=== PATIENT | male | born 2000 ===

== ENCOUNTER 2024-07-12 16:02 | Outpatient (REF) | payer OTHER, SELFPAY ==
[2024-07-13 02:43] LABS: CT PCR NOT DETECTED (Not Detect.); NG PCR NOT DETECTED (Not Detect.)
[2024-07-13 09:45] LABS: ~HepC Num1 0.06 S/CO (0.00-0.79); ~Hepatitis C Antibody Nonreactive (Nonreactive)
[2024-07-14 08:16] LABS: HIV AB/AG Nonreactive (Nonreactive); HIV Num 1 0.08 S/CO (0.00-0.99)
== END 2024-07-12 16:03 | disposition home or self-care (01) ==
LOC: HO.HHCL 16:02
PROVIDERS: Visit Provider Family Medicine
DX: Z11.4 Encounter for screening for human immunodeficiency virus [HIV] (principal); A64 Unspecified sexually transmitted disease
CPT/HCPCS: 36415; 86803; 87389; 87491; 87591

== ENCOUNTER 2024-10-17 16:17 | Outpatient (REF) | payer MEDICAID, SELFPAY ==
[2024-10-17 17:47] LABS: MANUAL DIFF FLAG NO
[2024-10-17 17:58] LABS: Basophils Percent Auto 0.4 % (0-2); Eosinophils Percent Auto 0.1 % (0-4); Hematocrit 40.5 % (42.0-52.0); Hemoglobin 14.4 g/dl (14.0-18.0); Imm Gran Abs Auto 0.05 X10*3/uL (0.00-0.03); Imm Gran Pct Auto 0.6 % (0.0-0.4); Lymphocytes Absolute Auto 1.2 X10*3/uL (1.2-4.9); Lymphocytes Percent Auto 14.2 % (20-40); Mean Corpuscular HGB Conc 35.6 g/dl (31.0-36.0); Mean Corpuscular Hemoglobin 30.4 pg (27.0-33.0); Mean Corpuscular Volume 85.4 fL (80.0-98.0); Mean Platelet Volume 8.6 fL (9.4-12.4); Monocytes Absolute Auto 0.8 X10*3/uL (0.1-1.2); Monocytes Percent Auto 9.9 % (2-11); Neutrophils Absolute Auto 6.4 x10*3/uL (2.0-8.3); Neutrophils Percent Auto 74.8 % (45-73); Platelet Count 205 X10*3/uL (160-400); Red Blood Count 4.74 X10*6/uL (4.60-5.80); Red Cell Distribution Width 12.2 % (11.0-16.0); White Blood Count 8.5 X10*3/uL (4.8-10.8)
[2024-10-17 18:16] LABS: Alanine Aminotransferase 20 U/L (0-40); Albumin Level 4.6 g/dL (3.5-5.0); Alkaline Phosphatase 46 U/L (39-117); Anion Gap 11 (12-20); Aspartate Amino Transferase 21 U/L (5-37); Bilirubin Total 0.8 mg/dL (0.0-1.0); Blood Urea Nitrogen 12 mg/dL (9-16); Calcium 8.9 mg/dL (8.4-10.2); Carbon Dioxide 28 mmol/L (22-29); Chloride 100 mmol/L (96-108); Estimated Glomerular Filt Rate > 60; Glucose Random 102 mg/dL (60-115); Potassium 3.3 mmol/L (3.3-5.1); Sodium 136 mmol/L (135-145); Total Protein 7.9 g/dL (6.5-8.0)
== END 2024-10-17 16:18 | disposition home or self-care (01) ==
LOC: HO.HHCL 16:17
PROVIDERS: Visit Provider Family Medicine
DX: R42 Dizziness and giddiness (principal)
CPT/HCPCS: 36415; 80053; 85025

== ENCOUNTER → 2024-11-04 11:11 | Outpatient (REF) | payer MEDICAID, SELFPAY ==
--- OUTSIDE RECORDS SUMMARY | 2024-11-04 12:21 | XMS_ITS | Encounter Summary ---
Author Organization [employer] Address [address] [facility] 7t [place] [address] Care Team Providers Care Associate Professor Of Automation Name Role Phone Marcella Antony MD Primary Care Provider [phone]- [phone] Isra Rapp DPM Unavailable [phone] Reason for Visit * Reason Onset Date Comments Nurse Triage 10/17/2024 Encounter Details Date Type Department Care Team ([facility] st Contact Info) Description 10/17/2024 Telephone [facility] MEDICINE [address] [place], [place] [phone] Marcella Antony MD [address] [place], [place] [phone] Nurse Triage Social History Tobacco Use Types Packs/Day Years Used Date Smoking Tobacco: Never Smokeless Tobacco: Never Alcohol Use Standard Drinks/Week Comments Never 0 (1 standard drink = 0.6 oz pur e alcohol) Housing Stability Answer Date Recorded What is your housing situation today? I have piotrsophy olivera 09/02/[address] you li ve. Do you have problems with any of the following? None of the above 09/02/2024 Food Insecurity Answer Date Recorded Within the past 12 months, y ou worried that your food would run out before you got money to buy more: Never True 09/02/2024 Within the past 12 months,th e food you bought just didn't last and you didn't have enough money to get more: Never True Transportation Answer Date Recorded In the past 12 months, has l ack of transportation kept you from medical appts, meetings, work or from getting things needed for daily living? No 09/02/2024 Utilities Answer Date Recorded In the past 12 months, has t he electric, gas, oil or water company threatened to shut off services in your home? 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 Pt reports hadbeen dizzy prior to getting to the bathroom and when stood up after toileting Pt saw blurred visionthen black and fell backward toward bathtub. Pt reports mother heard the fall and helped Pt up . Ptreports this episode didn't last more than a minute. Pt denies injury but, isn't sure if hit head. Pt denies bumps or bruises. Pt is called at work and is alert and without headache. Pt is advised [facility] to [facility] today to be seen by provider. Pt reports gets out of work at 630pm and will come to [facility]. Home care is reviewed. Pt agrees with disposition . Insurance is verified as active prior to booking. Protocol Used: Fainting (Adult) Protocol-Based Disposition: See in Office or Video Visit Today Positive Triage Questions: * All other patients, and now alert and feels fine (Exception: SIMPLE FAINT due to stress, pain, prolonged standing, or suddenly standing.) * Patient wants to be seen * All higher-acuity triage questions were negative Care Advice Discussed: * Treatment - Fainting * Expected Course - Fainting * Prevention - Fainting * Warning Symptoms for Fainting * Reasons To Call Back - You pass out again on the same day - You are * Telephone Encounter - Jose Ramon Malin - 10/17/2024 9:08 AM EST Symptom: Fainted (Passed Out) Outcome: Schedule an urgent appointment (within 1 hour) or talk to a nurse or provider soon Reason: Caller denied all higher acuity questions The caller accepted this outcome. Contact pt at [phone] documented in this encounter Plan of Treatment Upcoming Encounters Date Type Department Care Team (Late st Contact Info) Description 12/19/2024 9:00 AM EDT Office Visit [facility] MEDICINE [address] [place] [phone] Marcella Antony MD [address] [place] [phone] documented as of this encounter Visit Diagnoses Not on filedocumented in this encounter Care Teams Associate Professor Of Automation Relationship Specialty Start Date End Date Marcella Antony MD [address] [place] [address] PCP - General Family Medicine 07/12/24 Isra Rapp DPM [address] [place] [phone] Podiatry 10/19/24 documented as of this encounter
--- OUTSIDE RECORDS SUMMARY | 2024-11-04 12:21 | XMS_ITS | Encounter Summary ---
Author Organization [employer] [facility] Address [address] [facility] [address] 7t [place] [address] Care Team Providers Care Health Care Marketing Specialist Name Role Phone Marcella Antony MD Primary Care Provider [phone] Encounter Details Date Type Department Care Team (Latest Contact Info) Description 10/17/2024 Travel Social History Tobacco Use Types Packs/Day Years Used Date Smoking Tobacco: Never Smokeless Tobacco: Never Alcohol Use Standard Drinks/Week Comments Never 0 (1 standard drink = 0.6 oz pur e alcohol) Housing Stability Answer Date Recorded What is your housing situation today? 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 Not on file documented as of this encounter Plan of Treatment Upcoming Encounters Date Type Department Care Team (Late st Contact Info) Description 12/19/2024 9:00 AM EDT Office Visit [facility] MEDICINE [address] [place] [address] Marcella Antony MD [address] [place] [phone] documented as of this encounter Visit Diagnoses Not on filedocumented in this encounter Care Teams Health Care Marketing Specialist Relationship Specialty Start Date End Date Marcella Antony MD [address] [place] [phone] PCP - General Family Medicine 07/12/24 documented as of this encounter
--- OUTSIDE RECORDS SUMMARY | 2024-11-04 12:21 | XMS_ITS | Encounter Summary ---
Author Organization [employer] [facility] Address [address] [place] [address] 7t [place] [address] Care Team Providers Care Seasonal Warehouse Associate Name Role Phone SaxisMarcella MD Primary Care Provider [phone] Reason for Referral * Cardiology (Routine) - Authorized Specialty Diagnoses / Procedures Referred By Gary chin Referred To Contact Cardiology Diagnoses Syncope, unspecified syncope type Procedures Cardiac event monitor Rose Braxton MD [address] [place] [address] Phone: tel: fax: [address] Phone: tel: fax: Referral ID Status Reason Start Date Expiration Date V isits Requested Visits Authorized [id number] Authorized 10/23/2024 10/23/2025 1 1 Encounter Details Date Type Department Care Team (Latest Contact Info) Description 10/17/2024 3:45 PM EST Office Visit [facility] MEDICINE [address] [place], [place] [phone] Rose Braxton MD [address] [place], [place] [phone] Nonintractable headache, unspecified chronicity pattern, unspecified headache type (Primary Dx); Dizziness; Nausea; Blood in stool; Syncope, unspecified syncope type Social History Tobacco Use Types Packs/Day Years Used Date Smoking Tobacco: Never Smokeless Tobacco: Never Alcohol Use Standard Drinks/Week Comments Never 0 (1 standard drink = 0.6 oz pur e alcohol) Housing Stability Answer Date Recorded What is your housing situation today? 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 male who presents for headache. Triage Note: Patient reports fainting at 5 am on 10/16/24 while getting up to go to the bathroom. [place] dizzy before going to th bathroom. Blurry vision. His mother came to help him. Today: The pt reports fainting. He said it has happened before, but this one came on so quick that he couldn't stay in control and he fainted and hit his head. He currently has a pulsating headache from where he hit his head when he fainted. He said he noticed some blood after. He experiences a little nausea but denies dizziness right now. He says when he looks at light outside it bothers his eyes a little, but his vision is normal. When he was laying down after fainting, he reports hearing tinnitus. The last time something like this has happened to him was around a week or so ago. He said he fainted at the new job he started working, but contributes it to gastroenteritis. He kept throwing up, he had diarrhea, and dizziness. He went to the [facility] ED. He states no seizure-like episode or postictal symptoms. When he wiped recently, he reports seeing blood in his stool. He denies taking any medication. Reviewing [facility] record, CT abd/plevis on 10/08/24 showed no abnormality. EKG was reported as sinus tachycardia, right atrial enlargement and right axis deviation. Review of Systems Constitutional: Negative for activity change, appetite change, fever and unexpected weight change. Respiratory: Negative for shortness of breath. Cardiovascular: Negative for chest pain. Gastrointestinal: Positive for nausea. Neurological: Positive for light-headedness and headaches. Objective Vitals: 10/17/24 1555 BP: 128/73 Pulse: 103 Resp: 21 Temp: 97.5 ??F (36.4 ??C) TempSrc: Temporal SpO2: 98% Weight: 141 lb 3.2 oz (64 kg) Physical Exam Constitutional: General: He is not in acute distress. Appearance: Normal appearance. He is not ill-appearing. HENT: Head: Normocephalic and atraumatic. Mouth/Throat: Mouth: Mucous membranes are moist. Eyes: Extraocular Movements: Extraocular movements intact. Pupils: Pupils are equal, round, and reactive to light. Cardiovascular: Rate and Rhythm: Normal rate and regular rhythm. Heart sounds: No murmur heard. Pulmonary: Effort: Pulmonary effort is normal. No respiratory distress. Breath sounds: Normal breath sounds. No wheezing or rhonchi. Skin: General: Skin is warm. Neurological: Mental Status: He is alert. Mental status is at baseline. Psychiatric: Mood and Affect: Mood normal. Assessment/Plan Problem List Items Addressed This Visit Nonintractable headache - Primary -Since the head injury, if you feel dizziness, I advise you to take ibuprofen or acetaminophen -We will evaluate him with MRI if pain does not improve in next few weeks -I advise you to contact us if symptoms worsen Relevant Medications ibuprofen 600 MG tablet acetaminophen (Tylenol 8 Hour) 650 MG ER tablet Dizziness Relevant Orders CBC auto differential (Completed) Comprehensive Metabolic Panel (Completed) Nausea -Will prescribe zofran Relevant Medications ondansetron ODT (Zofran-ODT) 4 MG disintegrating tablet Blood in stool Relevant Orders OCCULT BLOOD, DIAGNOSTIC Other Visit Diagnoses Syncope, unspecified syncope type Relevant Orders Cardiac event monitor No Known Allergies Current Outpatient Medications Medication Instructions acetaminophen (TYLENOL 8 HOUR) 650 mg, Oral, Every 8 hours PRN, Do not crush, chew, or split. azelastine (Astelin) 0.1 % nasal spray 1 spray, Each Nostril, 2 times daily, Use in each nostril asdirected fexofenadine (EDGAR) 180 mg, Oral, Daily PRN ibuprofen 600 mg, Oral, Every 6 hours PRN ondansetron ODT (ZOFRAN-ODT) 4 mg, Oral, Every 8 hours PRN Follow-up: 2 months or sooner with PCP if any problem arises. Scribe Attestation: Matt Mosley, am serving as a scribe to document services personally performed by Rose Braxton MD,based on the patient's response to questions by provider and provides statements to me. Physicians Attestation: Rose Mosley, have reviewed the information by the scribe, Xin Shabazz, for accuracy and agree with its content. documented in this encounter Miscellaneous Notes * Assessment & Plan Note - Matt Erazo - 10/17/2024 4:19 PM ESTAssociated Problem(s): Nausea -Will prescribe zofran * Assessment & Plan Note - Matt Erazo - 10/17/2024 4:19 PM ESTAssociated Problem(s): Nonintractable headache -Since the head injury, if you feel dizziness, I advise you to take ibuprofen or acetaminophen -We will evaluate him with MRI if pain does not improve in next few weeks -I advise you to contact us if symptoms worsen documented in this encounter Plan of Treatment Upcoming Encounters Date Type Department Care Team ([facility] st Contact Info) Description 12/19/2024 9:00 AM EDT Office Visit [facility] MEDICINE [address] [place] [phone] Marcella Antony MD [address] [place] [address] Scheduled Orders Name Type Priority Associated Diagnoses Orde r Schedule OCCULT BLOOD, DIAGNOSTIC Lab Routine Blood in stool Expected: 10/17/2024 (Approximate), Expires: 10/17/2025 Cardiac event monitor Cardiac Services Routine Syncope, unspecified syncope type Expected: 10/23/2024 (Approximate), Expires: 10/23/2026 documented as of this encounter Procedures Procedure Name Priority Date/Time Associated Diagnosis Comments CLIENT EDUCATION TRACKING Routine 10/25/2024 7:14 AM EST FECAL GLOBIN BY IMMUNOCHEMISTRY Routine 10/25/2024 7:14 AM EST CBC WITH AUTO DIFFERENTIAL Routine 10/17/2024 4:26 PM EST Dizziness COMPREHENSIVE METABOLIC PANEL Routine 10/17/2024 4:26 PM EST Dizziness documented in this encounter Results * Fecal Globin by Immunochemistry (10/25/2024 7:14 AM EST) Pathologist [facility] Fecal Globin By Immunochemistry SEE NOTE [facility] [place] [address] Comment: ??FECAL GLOBIN BY IMMUNOCHEMISTRY ?Micro Number: ?[id number] ??Test Status: ? Final ??Specimen Source: ?? Insure (tm) fobt test card ??Specimen Quality: ??Adequate ??Fecal Globin: ?Not Detected ??Comment: ? Test results may be invalid as no date of ? collection was provided. Specimens are stable ? for 14 days. NO COLLECTION DATE RECEIVED. WE HAVE USED THE DATE THE SPECIMEN WAS RECEIVED BY THIS LABORATORY THE COLLECTION DATE. IF THIS IS INCORRECT, PLEASE CONTACT CLIENT SERVICES. PHONE NUMBER: 10/25/2024 5:1 5 AM EST Narrative [facility] - 10/25/2024 7:14 AM EST FASTING: UNKNOWN Rose Braxton MD LAB BODY FLUIDS AND STOOLS ORDER ATILIO Final Result [facility] [address], [place] [address] [facility] [address] [place] [phone] * Client Education Tracking (10/25/2024 7:14 AM EST) Pathologist [facility] Client Education Tracking [facility] Comment: The Requisition we received did not include a [facility] account number. To prevent delays in testing and processing of your orders please provide the following information with every order submitted: [facility] account number and account name Client address Client phone and fax number NPI number of ordering physician along with the physician name. 10/25/2024 5:1 5 AM EST Narrative [facility] - 10/25/2024 7:14 AM EST FASTING: UNKNOWN us Rose Braxton MD LAB BLOOD BANK TEST ORDERABLES F inal Result [facility] [address], [place] [address] [facility] [address] [place] [address] * (ABNORMAL) Comprehensive Metabolic Panel (10/17/2024 4:26 PM EST) Sodium 136 135 - 145 mmol/L [facility] Potassium 3.3 3.3 - 5.1 mmol/L [facility] Chloride 100 96 - 108 mmol/L [facility] Carbon Dioxide 28 22 - 29 mmol/L [facility] Anion Gap 11(L) 12 - 20 [facility] Urea Nitrogen (BUN) 12 9 - 16 mg/dL [facility] Creatinine, Serum 0.74 0.5 - 1.4 mg/dL [facility] Estimated Glomerular Filt Rate >60 [facility] Comment:Chronic Kidney Disea se: Estimated GFR < 60 mL/min/1.42d1Psffca Kidney Disease: Estimated GFR < 15 mL/min/1.73m2 Glucose 102 60 - 115 mg/dL [facility] Calcium 8.9 8.4 - 10.2 mg/dL [facility] Bilirubin, Total 0.8 0.0 - 1.0 mg/dL [facility] Aspartate Amino Transferase 21 5 - 37 U/L [facility] Alanine Aminotransferase 20 0 - 40 U/L [facility] Total Protein 7.9 6.5 - 8.0 g/dL [facility] Albumin Level 4.6 3.5 - 5.0 g/dL [facility] Alkaline Phosphatase 46 39 - 117 U/L [facility] Blood Venous blood specimen / Unknown 10/17/2024 4:26 PM EST 10/17/2024 5:39 PM EST us Rose Braxton MD LAB BLOOD ORDERABLES Final Resul t [facility] [address] [place] [address] [phone] * (ABNORMAL) CBC auto differential (10/17/2024 4:26 PM EST) White Blood Count 8.5 4.8 - 10.8 X10*3/uL [facility] Red Blood Count 4.74 4.60 - 5.80 X10*6/uL [facility] Hemoglobin 14.4 14.0 - 18.0 g/dl [facility] Hematocrit 40.5(L) 42.0 - 52.0 % [facility] Mean Corpuscular Volume 85.4 80.0 - 98.0 fL [facility] Mean Corpuscular Hemoglobin 30.4 27.0 - 33.0 pg [facility] Mean Corpuscular HGB Conc 35.6 31.0 - 36.0 g/dl [facility] Red Cell Distribution Width 12.2 11.0 - 16.0 % [facility] Platelet Count 205 160 - 400 X10*3/uL [facility] Mean Platelet Volume 8.6(L) 9.4 - 12.4 fL [facility] Neutrophils Percent Auto 74.8(H) 45 - 73 % [facility] Imm Gran Pct Auto 0.6(H) 0.0 - 0.4 % [facility] Lymphocytes Percent Auto 14.2(L) 20 - 40 % [facility] Monocytes Percent Auto 9.9 2 - 11 % [facility] Eosinophils Percent Auto 0.1 0 - 4 % [facility] Basophils Percent Auto 0.4 0 - 2 % [facility] NRBC Pct Auto 0.0 0.0 - 0.2 /100WBC [facility] Neutrophils Absolute Auto 6.4 2.0 - 8.3 x10*3/uL [facility] Imm Gran Abs Auto 0.05(H) 0.00 - 0.03 X10*3/uL [facility] Lymphocytes Absolute Auto 1.2 1.2 - 4.9 X10*3/uL [facility] Monocytes Absolute Auto 0.8 0.1 - 1.2 X10*3/uL [facility] Eosinophils Absolute Auto 0.0 0.0 - 0.4 X10*3/uL [facility] Basophils Absolute Auto 0.0 0.0 - 0.2 X10*3/uL [facility] NRBC Abs Auto 0.000 0.0 - 0.012 X10*3/uL [facility] Blood Venous blood specimen / Unknown 10/17/2024 4:26 PM EST 10/17/2024 5:39 PM EST us Rose Braxton MD LAB BLOOD ORDERABLES Final Resul t [facility] [address] [place] [address] [phone] documented in this encounter Visit Diagnoses Diagnosis Nonintractable headache, unspecified chronicity pattern, unspecified headache type- Primary Dizziness Dizziness and giddiness Nausea Nausea alone Blood in stool Syncope, unspecified syncope type documented in this encounter Care Teams Seasonal Warehouse Associate Relationship Specialty Start Date End Date Marcella Antony MD [address] [place] [address] PCP - General Family Medicine 07/12/24 documented as of this encounter
--- OUTSIDE RECORDS SUMMARY | 2024-11-04 12:21 | XMS_ITS | Clinical Summary ---
Author Organization [facility] Address [address] [place] [address] Phone Care Team Providers Care Restorative Coordinator Name Role Phone Physician, Pcp Unknown Primary Care Provider Marybeth vailable Encounters Date Type Department Care Team Description 10/18/2024 2:45 PM EST Office Visit Orthopedic Surgery [facility] [address] [phone] Isra Rapp DPM Acquired hammer toe of right foot (Primary Dx); Contracture of joint of right foot from Last 3 Months Social History Tobacco Use Types Packs/Day Years Used Date Smoking Tobacco: Never Assessed Sex and Gender Information Value Date Recorded Sex Assigned at Not on file Legal Sex Male 2:54 AM EST Gender Identity Not on file Sexual Orientation Not on file Last Filed Vital Signs Vital Sign Reading Time Taken Comments Blood Pressure - - Pulse - - Temperature - - Respiratory Rate - - Oxygen Saturation - - Inhaled Oxygen Concentration - - Weight 63.5 kg (140 lb) 10/18/2024 2:38 PM EST Height 175.3 cm (5' 9 ) 10/18/2024 2:38 PM EST Body Mass Index 20.67 10/18/2024 2:38 PM EST Plan of Treatment Health Maintenance Due Date Last Done Comments Meningococcal B Vacine (1 of 2 - Standard) 2017 Depression Screening 08/17/2022 Social Influencers of Health Screening 08/17/2022 COVID-19 Vaccine ( season) 2024 Influenza Vaccine (#1) 2024 5, 08/25/2013, 05/31/2012, Additional history exists DTaP,Tdap,and Td Vaccines (8 - Td or Tdap) 09/02/2034 09/02/2024, 05/31/2012, 01/14/2006, Additional history exists Hepatitis B Vaccines Completed 2001, 2001, 2001 HIB Vaccines Completed 05/10/2002, 07/15, 2001, Additional history exists Pneumococcal Vaccine: Pediatrics (0 to 5 Years) and At-Risk Patients (6 to 64 Years) Completed 09/19/2003, 2001, 2001, Additional history exists IPV Vaccines Completed 01/14/2006, 04/15, 2001, Additional history exists MMR Vaccines Completed 01/14/2006, 01/25/2002 Varicella Vaccines Completed 05/31/2012, 01/25/2002 Meningococcal ACWY Vaccine Aged Out 08/25/2013 N o longer eligible based on patient's age to complete this topic HPV Vaccines Completed 06/14/2015, 10/15, 08/25/2013 HIV Screening Completed 07/12/2024 Hepatitis C Screening Completed 07/12/2024, 024 Hepatitis A Vaccines Completed 09/02/2024, 06/14/20 15 RSV Immunization Patients Under 20 months Aged Out No longer eligible based on patient's age to complete this topic Insurance MEDICAID - [place] Care Teams Restorative Coordinator Relationship Specialty Start Date End Date Physician, Pcp Unknown PCP - General 10/03/24
--- OUTSIDE RECORDS SUMMARY | 2024-11-04 12:21 | XMS_ITS | Encounter Summary ---
Author Organization [facility] Address [id number] [place] [id number] Care Team Providers Care Patient Financial Specialist Name Role Phone Physician, Pcp Unknown Primary Care Provider Marybeth vailable Reason for Visit * Reason Comments Consult Hammertoe right foot * Orthopedic (Routine) - Closed Specialty Diagnoses / Procedures Referred By Contact Referred To Contact Podiatry / Orthopaedic Surgery Diagnoses Other hammer toe(s) (acquired), right foot Procedures AMB Referral to Podiatry Marcella Antony MD [address] [address] Phone: tel: fax: Isra Rapp DPM [address] [address] Phone: tel: fax: Referral ID Status Reason Start Date Expiration Date V isits Requested Visits Authorized [id number] Closed Consult and Treat 07/12/2024 07/12/2025 6 6 Encounter Details Date Type Department Care Team (Late st Contact Info) Description 10/18/2024 2:45 PM EST Office Visit Orthopedic Surgery - [place] [address] [phone] Isra Rapp DPM [address] [address] Acquired hammer toe of right foot (Primary Dx); Contracture of joint of right foot Social History Tobacco Use Types Packs/Day Years Used Date Smoking Tobacco: Never Assessed Sex and Gender Information Value Date Recorded Sex Assigned at Not on file Legal Sex Male 2:54 AM EST Gender Identity Not on file Sexual Orientation Not on file documented as of this [...] Mass Index 20.67 10/18/2024 2:38 PM EST documented in this encounter Progress Notes * Isra Rapp DPM - 10/18/2024 2:45 PM EST Last PCP visit:Referring MD: Marcella Antony MD IDENTIFIER: Javed is a 24 y.o. year old male who presents for consultation. CC: Foot pain HPI: Patient presents today stating that he has a hammertoe contracture of his right second toe he has noticed that since he was young has been going on for several years slowly been getting worse painfulhas been wearing wider shoes and padding in the area with minimal improvement he would like to knowwhat his surgical options are pain discomfort of 2-4 out of 10 on a visual analog scale pain is local activity and shoe gear he decides to wear ROS: GENERAL: Pt denies nausea, fever, vomiting, chills, or shortness of breath. Pt in NAD. CARDIOLOGY: pt denies chest pain, palpitations LUNGS: pt denies shortness of breath MUSCULOSKELETAL: See HPI, otherwise no joint pain or swelling, back pain, or muscle pain. SKIN: see HPI, otherwise no lesions, rash or itching NEURO: No persistent headache, weakness or numbness The remainder of the review of systems is noncontributory PAST MEDICAL HISTORY: There is no problem list on file for this patient. SOCIAL HISTORY: Social History Tobacco Use Smoking status: Not on file Smokeless tobacco: Not on file Substance Use Topics Alcohol use: Not on file ACTIVE MEDICATIONS: No outpatient medications have been marked as taking for the 10/18/24 encounter (Office Visit) with Isra Rapp DPM. ALLERGIES: Not on File PHYSICAL EXAM: Visit Vitals Ht 1.753 m (69 ) Wt 63.5 kg (140 lb) BMI 20.67 kg/m?? BSA 1.78 m?? PODIATRIC EXAMINATION: GENERAL: Patient appears well nourished, with NAD. VASCULAR: Dorsalis pedis pulses are 2/4 bilaterally and Posterior tibial pulses are 2/4 bilaterally. Capillary filling time within normal limits the digits. No pallor on elevation or rubor on dependency. No varicosities. Denies rest pain or claudication pain. NEUROLOGICAL: Sharp/dull sensation intact, protective sensation intact 10/10 with 5.07 semmes shankar bilaterally, vibratory sensation with tuning fork intact to the tibial tuberosity. ORTHOPEDIC: Good muscle strength 5/5 of all flexors and extensors. Dorsi flexion of ankle ,10 degrees, plantar flexion WNL. No muscle atrophy. DERMATOLOGICAL:.No masses or skin lesions noted. Normal skin temperature, normal skin turgor. BIOMECHANICS: Ankle ROM WNL, STJ ROM wnl, MTJ ROM wnl, 1st MPJ ROM wnl. Severe rigid contracture of the right second digit with hammertoe contracture deformity MPJ contracture dorsally with plantarflexed contracture of the PIPJ rigid minimally reducible IMAGING: IMPRESSION: 1. Acquired hammer toe of right foot 2. Contracture of joint of right foot PLAN: Pt was seen and examined, history reviewed. During today???s visit we discussed at great length the etiology, prognosis, and treatment options for the patient???s condition. Risks and benefits of operative and non operative treatment options were discussed. Treatment options for MPJ contracture relief right second flexor tendon transfer and IPJ fusion right second correction were discussed, non-operative treatment would involve tapping, strapping, adjustments in shoe gear, orthotics insoles, rest, bracing and edema control. There is potential for the deformities to stabilize without surgery yet there may still be a need for delayed surgery and distructive procedures. There is potential for non-union with surgery and non- operative care would avoid incision problems and anesthesia risks. Surgery has added risks including but not limited to infection, incision pain, neuritis or numbness reoccurance of deformity, scar tissue contracture, worseningof deformity and loss of limb or life. r MPJ contracture relief right second flexor tendon transferand IPJ fusion right second healing was discussed in relation to operative treatment. Recovery and post operative immobilization was discussed based on the various treatment options. Weight bearing status: NWB x 2 weeks followed by progressive WB x 10 weeks in a below the knee boot. Work&Activity restrictions: Impact of undergoing surgery to work and daily activity was discussed today Pain management: Postoperative pain regiment were discussed in great detail with the patient. The patient was also encouraged to aggressively elevate and ice postoperatively to help with swelling andpain control. The patient was in agreement with this plan. The patient will be prescribed IbuprofenTylenol Oxycodone for postoperative pain management. VTE Risk assessment: Risk of DVT/ PE were discussed in relation to immobilization, inactivity, injury, surgery, medication and personal risk factors. Signs and symptoms of a blood clot were discussedincluding action plan if the patient experiences these signs or symptoms. Methods of prevention and risk reduction were explained. Mechanical prophylaxis including ROM and mobilization is encouraged as much as possible. The patient???s risk for deep vein thrombosis was also assessed today. In regards to major risk factors they: Do not have personal history of DVT Do not have known active cancer Do not have known clotting disorder Do not have family history of DVT Pending foot surgery and current level of immobilization are risk factors. Measure taken to decrease their risk of deep vein thrombosis will consist of detailed education, as well as lower extremity range of motion. Chemical prophylaxis is not recommended based on patients history, procedure and postoperative plan. Planned procedure(s): r MPJ contracture relief right second flexor tendon transfer and IPJ fusion right second surgery WB status: NWB x 2 weeks followed by progressive WB x 10 weeks in a below the knee boot. Pain medication: Ibuprofen Tylenol Oxycodone X-rays ordered right foot 3 views Isra Rapp DPM documented in this encounter Plan of Treatment Not on file documented as of this encounter Visit Diagnoses Diagnosis Acquired hammer toe of right foot- Primary Contracture of joint of right foot documented in this encounter Care Teams Patient Financial Specialist Relationship Specialty Start Date End Date Physician, Pcp Unknown PCP - General 10/03/24 documented as of this encounter
--- OUTSIDE RECORDS SUMMARY | 2024-11-04 12:21 | XMS_ITS | Encounter Summary ---
Author Organization [employer] Address [address] [facility] [address] [place] [address] Care Team Providers Care Correction Warden Name Role Phone Marcella Antony MD Primary Care Provider [phone] Isra Rapp DPSusana Unavailable [phone] Reason for Visit * Reason Onset Date Comments Med Refill 09/28/2024 Encounter Details Date Type Department Care Team (Late st Contact Info) Description 09/28/2024 Refill [facility] [address] [place], [place] [phone] Marcella Antony MD [address] [place], [place] [phone] Seasonal allergies Social History Tobacco Use Types Packs/Day Years [...] t he electric, gas, oil or water [id number] threatened to shut off services in your [...] 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 Not on file Not on file documented as of this encounter Plan of Treatment Upcoming Encounters Date Type Department Care Team (Late st Contact Info) Description 12/19/2024 9:00 AM EDT Office Visit [facility] [address] [place] [id number] Marcella Antony MD [address] [place] [address] documented as of this encounter Visit Diagnoses Diagnosis Seasonal allergies Allergic rhinitis, cause unspecified documented in this encounter Care Teams Correction Warden Relationship Specialty Start Date End Date Marcella Antony MD [address] [place] [address] PCP - General Family Medicine 07/12/24 Isra Rapp DPM [address] [place] [phone] Podiatry 10/19/24 documented as of this encounter
--- OUTSIDE RECORDS SUMMARY | 2024-11-04 12:21 | XMS_ITS | Clinical Summary ---
Author Organization [email or web address] Address [address] [facility] [address] [place] [address] Care Team Providers Care Graining Press Operator Name Role Phone Marcella Antony MD Primary Care Provider [phone] Isra Rapp DPM Unavailable [phone] Allergies No known active allergies Medications azelastine (Astelin) 0.1 % nasal sprayIndications: Seasonal allergies Administer 1 spray into each nostril 2 times daily. Use in each nostril as directed 30 mL 12 024 2024 Active fexofenadine (Eda) 180 MG tabletIndications :Seasonal allergies Take 1 tablet (180 mg) by mouth if needed each day (Allergies). 30 tablet 3 024 2024 Active ondansetron ODT (Zofran-ODT) 4 MG disintegrating tabletIndications :Nausea Take 1 tablet (4 mg) by mouth every 8 (eight) hours if needed for nausea or vomiting. 20 tablet 025 Active ibuprofen 600 MG tabletIndications :Nonintractable headache, unspecified chronicity pattern, unspecified headache type Take 1 tablet (600 mg) by mouth every 6 (six) hours if needed for mild pain. 30 tablet 025 Active acetaminophen (Tylenol 8 Hour) 650 MG ER tabletIndications :Nonintractable headache, unspecified chronicity pattern, unspecified headache type Take 1 tablet (650 mg) by mouth every 8 (eight) hours if needed for mild pain. Do not crush, chew, or split. 30 tablet 025 Active ibuprofen 600 MG tabletIndications :Acute bacterial sinusitis Take 1 tablet (600 mg) by mouth every 6 (six) hours if needed for mild pain. 30 tablet 024 2024 Discontinued(R eorder (will not trigger notification to Pharmacy)) Active Problems Problem Noted Date Diagnosed Date Nonintractable headache 10/17/2024 Assessment & Plan (10/17/2024 4:19 PM EST): -Since the head injury, if you feel dizziness, I advise you to take ibuprofen or acetaminophen -We will evaluate him with MRI if pain does not improve in next few weeks -I advise you to contact us if symptoms worsen Dizziness 10/17/2024 Nausea 10/17/2024 Assessment & Plan (10/17/2024 4:19 PM EST): -Will prescribe zofran Blood in stool 10/17/2024 Seasonal allergies 09/02/2024 Hammer toe of right foot 07/12/2024 Overview (10/19/2024): Pain to right foot when wearing shoes. Evidence of hammer toe on exam. -seen by Dr. Isra Rapp, senior engineering associate at [facility] 10/18/24, surgery scheduled Assessment & Plan (07/12/2024 3:27 PM EDT): Pain to right foot when wearing shoes. Evidence of hammer toe on exam. -referred to podiatry 07/12/24 Other specified health status 07/12/2024 Overview (09/02/2024): -next comprehensive annual evaluation due after 09/02/25 -eye care facilitated by [employer] -dental home is [facility] proxy filed 09/02/24 Encounters Date Type Department Care Team Description 10/17/2024 3:45 PM EST Office Visit [address] [address] Rose Braxton MD Nonintractable headache, unspecified chronicity pattern, unspecified headache type (Primary Dx); Dizziness; Nausea; Blood in stool; Syncope, unspecified syncope type 10/17/2024 Travel 10/17/[address] [address] Marcella Antony MD Nurse Triage 09/28/2024 Refill [facility] [address] [place] [address] Marcella Antony MD Seasonal allergies 09/02/2024 11:00 AM EST Office Visit [facility] [address] [place] [phone] Marcella Antony MD Seasonal allergies (Primary Dx); Other specified health status; Encounter for immunization 09/02/2024 Travel 08/25/2024 Patient Outreach [facility] [address] [place] [address] Marcella Antony MD Pre-visit Planning (Pre-visit planning - unable to leave a message, mailbox is not set up yet. /) 08/22/2024 3:00 PM EST Office Visit [facility] [address] [place] [phone] Giana Pepper MD Allergic rhinitis, unspecified seasonality, unspecified trigger (Primary Dx) from Last 3 Months Immunizations Name Administration Dates Next Due DTaP 01/14/2006, 2,2001,06/01,2001 HPV 9-Valent 06/14/2015 HPV, Quadrivalent 10/26/2013,08/25/2013 Hep A, Adult 09/02/2024 Hep A, ped/adol, 2 dose 06/14/2015 Hep B, Adolescent or Pediatric 2001,2000,2001 Hib (HbOC) 05/10/2002, 1,2001,03/30 IPV 01/14/2006, 2,2001,03/30 Influenza injectable quadriv alent preservative free 06/14/2015 Influenza live intranasal trivalent 05/31/2012 Influenza, IIV3, injectable 08/12/2009 Influenza, Split (incl. 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 Not on file Not on file Last Filed Vital Signs [...] 3.2 oz) 10/17/2024 3:55 PM EST Height 178.5 cm (5' 10.28 ) 09/02/2024 11:02 AM EST Body Mass Index 20.1 09/02/2024 11:02 AM EST Plan of Treatment Upcoming Encounters Date Type Department Care Team (Late st Contact Info) Description 12/19/2024 9:00 AM EDT Office Visit [facility] [address] [place] [address] Marcella Antony MD [address] [place], [place] [phone] Health Maintenance Due Date Last Done Comments Depression Screening 2001 Influenza Vaccine (#1) 2025 5, 08/25/2013, 05/31/2012, Additional history exists Postponed from 05/15/2024 (Patient Refused) Chlamydia and Gonorrhea Screening 07/12/2025 07/12/2024 Alcohol/Substance Use Screening 09/02/2025 09/02/2024 COVID-19 Vaccine ( season) 2025 Postponed from 05/15/2024 (Patient Refused) Family Planning (PISQ) 09/02/2025 09/02/2024 SDOH Screening 09/02/2025 09/02/2024 Tobacco Screening 10/17/2025 10/17/2024 DTaP/Tdap/Td Vaccines (8 - Td or Tdap) 09/02/2034 09/02/2024, 05/31/2012, 01/14/2006, Additional history exists Zoster Vaccines (1 of 2) 2051 RSV Patients and Patients Aged 60 years or older (1 - 1-dose 75+ series) 01/17/2076 Hepatitis B Vaccines Completed 2001, 2001, 2001 HIB Vaccines Completed 05/10/2002, 07/15, 2001, Additional history exists Pneumococcal Vaccine: Pediatrics (0 to 5 Years) and At-Risk Patients (6 to 49) Years) Aged Out 09/19/2003, 2001, 2001, Additional history exists No longer eligible based on patient's age to complete this topic IPV Vaccines Completed 01/14/2006, 04/15, 2001, Additional history exists Meningococcal Vaccine Aged Out 08/25/2013 No merlin philipp eligible based on patient's age to complete this topic HPV Vaccines Completed 06/14/2015, 10/15, 08/25/2013 HIV Screening Completed 07/12/2024 Hepatitis C Screening Completed 07/12/2024 Hepatitis A Vaccines Completed 09/02/2024, 06/14/20 15 RSV under 20 months Aged Out No longe r eligible based on patient's age to complete this topic Rotavirus Vaccines Aged Out No longer eligible based on patient's age to complete this topic Procedures Procedure Name Priority Date/Time Associated Diagnosis Comments FECAL GLOBIN BY IMMUNOCHEMISTRY Routine 10/25/2024 7:14 AM EST CLIENT EDUCATION TRACKING Routine 10/25/2024 7:14 AM EST COMPREHENSIVE METABOLIC PANEL Routine 10/17/2024 4:26 PM EST Dizziness CBC WITH AUTO DIFFERENTIAL Routine 10/17/2024 4:26 PM EST Dizziness HEPATITIS C AB W/REFL TO HCV RNA, QN, PCR Routine 07/12/2024 4:05 PM EDT STI (sexually transmitted infection) HIV 1/2 ANTIGEN/ANTIBODY, FOURTH GENERATION W/RFL Routine 07/12/2024 4:05 PM EDT STI (sexually transmitted infection) CHLAMYDIA/N. GONORRHOEAE RNA, TMA, UROGENITAL Routine 07/12/2024 4:05 PM EDT STI (sexually transmitted infection) from Last 3 Months or Most Recently Relevant to Health Maintenance Results * Client Education Tracking (10/25/2024 7:14 AM EST) Client Education Tracking [facility] Comment: The Requisition we received did not include a [employer] account number. To prevent delays in testing and processing of your orders please provide the following information with every order submitted: [facility] account number and account name Client address Client phone and fax number NPI number of ordering physician along with the physician name. 10/25/2024 5:1 5 AM EST Narrative [facility] - 10/25/2024 7:14 AM EST FASTING: UNKNOWN Rose Braxton MD LAB BLOOD BANK TEST ORDERABLES F inal Result [facility] [address], [place] [address] [facility] [address] [place] [address] * Fecal Globin by Immunochemistry (10/25/2024 7:14 AM EST) [facility] Fecal Globin By Immunochemistry SEE NOTE [facility] Comment: ??FECAL GLOBIN BY IMMUNOCHEMISTRY ?Micro Number: ?[id number] ??Test Status: ? Final ??Specimen Source: ?? [...] STOOLS ORDER ATILIO Final Result [facility] [address], [place] [address] [facility] [address] [place] [address] * (ABNORMAL) CBC auto differential (10/17/2024 4:26 PM EST) White Blood Count 8.5 4.8 - 10.8 X10*3/uL [facility] Red Blood Count 4.74 4.60 - 5.80 X10*6/uL [facility] Hemoglobin 14.4 14.0 - 18.0 g/dl [facility] Hematocrit 40.5(L) 42.0 - 52.0 % [facility] Mean Corpuscular Volume 85.4 80.0 - 98.0 fL [facility] Mean Corpuscular Hemoglobin 30.4 27.0 - 33.0 pg [facility] Mean Corpuscular HGB Conc 35.6 31.0 - 36.0 g/dl [facility] Red Cell Distribution Width 12.2 11.0 - 16.0 % [facility] Platelet Count 205 160 - 400 X10*3/uL [facility] Mean Platelet Volume 8.6(L) 9.4 - 12.4 fL [facility] Neutrophils Percent Auto 74.8(H) 45 - 73 % [facility] Imm Gran Pct Auto 0.6(H) 0.0 - 0.4 % [facility] Lymphocytes Percent Auto 14.2(L) 20 - 40 % [facility] Monocytes Percent Auto 9.9 2 - 11 % [facility] Eosinophils Percent Auto 0.1 0 - 4 % [facility] Basophils Percent Auto 0.4 0 - 2 % [facility] NRBC Pct Auto 0.0 0.0 - 0.2 /100WBC [facility] Neutrophils Absolute Auto 6.4 2.0 - 8.3 x10*3/uL [facility] Imm Gran Abs Auto 0.05(H) 0.00 - 0.03 X10*3/uL [facility] Lymphocytes Absolute Auto 1.2 1.2 - 4.9 X10*3/uL [facility] Monocytes Absolute Auto 0.8 0.1 - 1.2 X10*3/uL [facility] Eosinophils Absolute Auto 0.0 0.0 - 0.4 X10*3/uL [facility] Basophils Absolute Auto 0.0 0.0 - 0.2 X10*3/uL [facility] NRBC Abs Auto 0.000 0.0 - 0.012 X10*3/uL [facility] Blood Venous blood specimen / Unknown 10/17/2024 4:26 PM EST 10/17/2024 5:39 PM EST us Rose Braxton MD LAB BLOOD ORDERABLES Final Resul t [facility] [address] [place] [phone] * (ABNORMAL) Comprehensive Metabolic Panel (10/17/2024 4:26 PM EST) Sodium 136 135 - 145 mmol/L [facility] Potassium 3.3 3.3 - 5.1 mmol/L [facility] Chloride 100 96 - 108 mmol/L [facility] Carbon Dioxide 28 22 - 29 mmol/L [facility] Anion Gap 11(L) 12 - 20 [facility] Urea Nitrogen (BUN) 12 9 - 16 mg/dL [facility] Creatinine, Serum 0.74 0.5 - 1.4 mg/dL [facility] Estimated Glomerular Filt Rate >60 [facility] Comment:Chronic Kidney Disea se: Estimated GFR < 60 mL/min/1.48e9Eiafmw Kidney Disease: Estimated GFR < 15 mL/min/1.73m2 Glucose 102 60 - 115 mg/dL [facility] Calcium 8.9 8.4 - 10.2 mg/dL [facility] Bilirubin, Total 0.8 0.0 - 1.0 mg/dL [facility] Aspartate Amino Transferase 21 5 - 37 U/L [facility] Alanine Aminotransferase 20 0 - 40 U/L [facility] Total Protein 7.9 6.5 - 8.0 g/dL [facility] Albumin Level 4.6 3.5 - 5.0 g/dL [facility] Alkaline Phosphatase 46 39 - 117 U/L [facility] Blood Venous blood specimen / Unknown 10/17/2024 4:26 PM EST 10/17/2024 5:39 PM EST Rose Braxton MD LAB BLOOD ORDERABLES Final Resul t Performing Organization Address [facility]/ZIP Co de Phone Number [facility] [address] [place] [phone] * Hepatitis C Antibody with Reflex to HCV, RNA, Quantitative, Real-Time PCR (07/12/2024 4:05 PM EDT) [facility] Hepatitis C Antibody Nonreactive Nonreactive [facility] Comment:Antibodies to HCV no t detected; does not exclude early acuteHCV infection. Blood Venous blood specimen / Unknown 07/12/2024 4:05 PM EDT 07/12/2024 5:55 PM EDT Marcella Antony MD LAB BLOOD ORDERABLES Final Result Performing Organization Address [facility] Co de Phone Number [facility] [address] [place] [phone] * Chlamydia/N. Gonorrhoeae RNA, TMA, Urine (07/12/2024 4:05 PM EDT) [facility] CT PCR NOT DETECTED Not Detect. [facility] Comment:A not detected test result does not exclude the possibilityof infection because test results can be affected byimproper specimen collection, concurrent antibiotic therapy,or the number of organisms in the specimen which may bebelow the sensitivity of the test. As with many diagnostictests, results from the Xpert CT/NG assay should beinterpreted in conjunction with other laboratory andclinical data available to the clinician.Xpert CT/NG performance has not been evaluated in patientsless than 14 years of age. The assay should not be used forthe evaluationof suspected sexual abuse or for other medico-legalindications. Additional testing is recommended in anycircumstance when false positive or false negative resultscould lead to adverse medical, social or psychologicalconsequences. NG PCR NOT DETECTED Not Detect. [facility] Comment:A not detected test result does not exclude the possibilityof infection because test results can be affected byimproper specimen collection, concurrent antibiotic therapy,or the number of organisms in the specimen which may bebelow the sensitivity of the test. As with many diagnostictests, results from the Xpert CT/NG assay should beinterpreted in conjunction with other laboratory andclinical data available to the clinician.Xpert CT/NG performance has not been evaluated in patientsless than 14 years of age. The assay should not be used forthe evaluationof suspected sexual abuse or for other medico-legalindications. Additional testing is recommended in anycircumstance when false positive or false negative resultscould lead to adverse medical, social or psychologicalconsequences. Urine, Random 07/12/2024 4:0 5 PM EDT 07/12/2024 5:51 PM EDT Narrative [facility] - 07/13/2024 2:43 AM EDT Urine us Marcella Antony MD LAB MICROBIOLOGY - GENERAL ORDERABLES Final Result [facility] [address] [place] [phone] * HIV-1/2 Antigen and Antibodies, Fourth Generation, with Reflexes (07/12/2024 4:05 PM EDT) HIV AB/AG Nonreactive Nonreactive [facility] Comment:HIV-1 p24 Ag and/or HIV-1/HIV-2 Ab not detected.A test result that is nonreactive does not exclude thepossibility of exposure to or infection with HIV-1 and/orHIV-2. Nonreactive results in this assay for individualswith prior exposure to HIV-1 and/or HIV-2 may be due toantigen and antibody levels that are below the limit ofdetection of this assay.The [place] HIV Ag/Ab Combo assay result andsupplemental assay results should be interpreted inconjunction with the patient's clinical presentation,history and other laboratory results. If the results areinconsistent with clinical evidence, additional testing issuggested to confirm the result. Blood Venous blood specimen / Unknown 07/12/2024 4:05 PM EDT 07/12/2024 5:55 PM EDT us Marcella Antony MD LAB BLOOD ORDERABLES Final Result [facility] [address] [place] [phone] from Last 3 Months or Most Recently Relevant to Health Maintenance Insurance C3 Advance Directives Documents on File Type Date Recorded Patient Credit Charge Authorizer Expl anation Advance Directives and Living Will 09/02/2024 Health Care Proxy 09/02/24 Care Teams Graining Press Operator Relationship Specialty Start Date End Date Marcella Antony MD [address] [place] [address] PCP - General Family Medicine 07/12/24 Isra Rapp DPM [address] [place] [phone] Podiatry 10/19/24
== END ==
LOC: HO.CARD 11:11
PROVIDERS: PCP Family Medicine; Visit Provider Family Medicine
DX: R55 Syncope and collapse (principal)
CPT/HCPCS: 93270

== ENCOUNTER → 2024-11-04 11:15 | Outpatient (BNV) | payer MEDICAID, SELFPAY | PROVIDERS: PCP Family Medicine; Visit Provider Internal Medicine Cardiovascular Disease | DX: R00.0 Tachycardia, unspecified (principal) | CPT/HCPCS: 93272 ==

== ENCOUNTER 2024-12-19 09:25 | Outpatient (REF) | payer MEDICAID, SELFPAY ==
--- OUTSIDE RECORDS SUMMARY | 2024-12-19 10:35 | XMS_ITS | Encounter Summary ---
Author Organization [employer] Address [address] [facility] [address] [place] [address] Care Team Providers Care Service Bar Cashier Name Role Phone Marcella Antony MD Primary Care Provider [phone] Isra Rapp DPM Unavailable [phone] Encounter Details Date Type Department Care Team (Latest Contact Info) Description 12/19/2024 Travel Social History Tobacco Use Types Packs/Day Years Used Date Smoking Tobacco: Never Smokeless Tobacco: Never Alcohol Use Standard Drinks/Week Comments Never 0 (1 standard drink = 0.6 oz pur e alcohol) Depression Answer Date Recorded Patient Health Questionnaire-9 Score 1 12/19/2024 Patient Health Questionnaire-9 Score 1 12/19/2024 Last PHQ-9: Questionnaire Data Not on file 0 12/19/2024 Housing Stability Answer Date Recorded What is [...] off services in your home? 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
--- OUTSIDE RECORDS SUMMARY | 2024-12-19 10:35 | XMS_ITS | Encounter Summary ---
Author Organization [employer] Address [address] [facility] [address]t [place] [address] Care Team Providers Care Customs Brokerage Agent Name Role Phone Marcella Antony MD Primary Care Provider [phone] Isra Rapp DPM Unavailable [phone] Encounter Details Date Type Department Care Team (Latest Contact Info) Description 12/19/2024 9:00 AM EDT Office Visit [facility] [address] [place] [phone] Marcella Antony MD [address] [place] [address] Nonintractable headache, unspecified chronicity pattern, unspecified headache type (Primary Dx); Dizziness; BRBPR (bright red blood per rectum); Routine screening for STI (sexually transmitted infection); Family planning Social History Tobacco Use Types Packs/Day Years [...] 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 Not on file documented as of this encounter Last Filed Vital Signs Vital Sign Reading Time Taken Comments Blood Pressure 128/78 12/19/2024 9:02 AM EDT Pulse 83 12/19/2024 9:02 AM EDT Temperature 36.2 ??C (97.1 ??F) 12/19/2024 9:02 AM ED T Respiratory Rate 20 12/19/2024 9:02 AM EDT Oxygen Saturation 98% 12/19/2024 9:02 AM EDT Inhaled Oxygen Concentration - - Weight 67.9 kg (149 lb 12.8 oz) 12/19/2024 9:02 AM EDT Height 175.3 cm (5' 9 ) 12/19/2024 9:02 AM EDT Body Mass Index 22.12 12/19/2024 9:02 AM EDT documented in this encounter Plan of Treatment Scheduled Orders Name Type Priority Associated Diagnoses Orde r Schedule Chlamydia/N. Gonorrhoeae RNA, TMA, Urine Microbiology Routine Routine screening for STI (sexually transmitted infection) Expected: 12/19/2024 (Approximate), Expires: 12/19/2025 HIV-1/2 Antigen and Antibodies, Fourth Generation, with Reflexes Lab Routine Routine screening for STI (sexually transmitted infection) Expected: 12/19/2024 (Approximate), Expires: 12/19/2025 Hepatitis C Antibody with Reflex to HCV, RNA, Quantitative, Real-Time PCR Lab Routine Routine screening for STI (sexually transmitted infection) Expected: 12/19/2024 (Approximate), Expires: 12/19/2025 Syphilis Screen Lab Routine Routine screening for STI (sexually transmitted infection) Expected: 12/19/2024 (Approximate), Expires: 12/19/2025 documented as of this encounter Visit Diagnoses Diagnosis Nonintractable headache, unspecified chronicity pattern, unspecified headache type- Primary Dizziness Dizziness and giddiness BRBPR (bright red blood per rectum) Hemorrhage of rectum and anus Routine screening for STI (sexually transmitted infection) Screening examination for venereal disease Family planning Other general counseling and advice for contraceptive management documented in this encounter Additional Health Concerns Assessment Noted Time PHQ-9 Depression Total Score: 1 12/20/19 25 9:13 AM EDT documented as of this encounter Care Teams Customs Brokerage Agent Relationship Specialty Start Date End Date Marcella Antony MD [address] [place] [address] PCP - General Family Medicine 07/12/24 Isra Rapp DPM [address] [place] [phone] Podiatry 10/19/24 documented as of this encounter
--- OUTSIDE RECORDS SUMMARY | 2024-12-19 10:35 | XMS_ITS | Clinical Summary ---
Author Organization [address] [facility] Address [address] [place] [address] Phone Care Team Providers Care Teacher Adult Education Name Role Phone Physician, Pcp Unknown Primary Care Provider Marybeth vailable Encounters Date Type Department Care Team Description 10/18/2024 2:45 PM EST Office Visit [facility] [address] [phone] Isra Rapp DPM Acquired hammer [...] COVID-19 Vaccine ( season) 2024 Influenza Vaccine (Season Ended) 2025 06/14/2015, 08/25/2013, 05/31/2012, Additional history exists DTaP,Tdap,and Td [...] topic Insurance MEDICAID - [place] Care Teams Teacher Adult Education Relationship Specialty Start Date End Date Physician, Pcp Unknown PCP - General 10/03/24
--- OUTSIDE RECORDS SUMMARY | 2024-12-19 10:35 | XMS_ITS | Clinical Summary ---
Author Organization [employer] Address [address] [facility] 7t [place] [address] Care Team Providers Care Clinic Scheduler Name Role Phone Marcella Antony MD Primary Care Provider [phone] Isra Rapp DPM Unavailable [phone] Allergies No known active allergies Medications azelastine (Astelin) 0.1 % nasal sprayIndications:S easonal allergies Administer 1 spray into each nostril 2 times daily. Use in each nostril as directed 30 mL 12 4 025 Active fexofenadine (Eda) 180 MG tabletIndications: Seasonal allergies Take 1 tablet (180 mg) by mouth if needed each day (Allergies). 30 tablet 3 4 025 Active ondansetron ODT (Zofran-ODT) 4 MG disintegrating tabletIndications: Nausea Take 1 tablet (4 mg) by mouth every 8 (eight) hours if needed for nausea or vomiting. 20 tablet 5 Active ibuprofen 600 MG tabletIndications: Nonintractable headache, unspecified chronicity pattern, unspecified headache type Take 1 tablet (600 mg) by mouth every 6 (six) hours if needed for mild pain. 30 tablet 5 Active acetaminophen (Tylenol 8 Hour) 650 MG ER tabletIndications: Nonintractable headache, unspecified chronicity pattern, unspecified headache type Take 1 tablet (650 mg) by mouth every 8 (eight) hours if needed for mild pain. Do not crush, chew, or split. 30 tablet 5 Active Active Problems Problem Noted Date Diagnosed Date Family planning 12/19/2024 BRBPR (bright red blood per rectum) 12/18/2024 Overview (12/19/2024): Pt reported BRPBPR when wiping 10/16/2024. -Fecal Globulin negative 10/25/24 Nonintractable headache 10/17/2024 Overview (12/19/2024): On 10/16/24 at 5am he reported syncopal episode, pt reported pulsating headache since hitting his head during the fall. At follow-up visit later that day, advised pt to take ibuprofen or acetaminophen. Exam was neurologically intact. -Will evaluate him with MRI if pain does not improve in next few weeks Assessment & Plan (10/17/2024 4:19 PM EST): -Since the head injury, if you feel dizziness, I advise you to take ibuprofen or acetaminophen -We will evaluate him with MRI if pain does not improve in next few weeks -I advise you to contact us if symptoms worsen Dizziness 10/17/2024 Overview (12/19/2024): On 10/22/24 he reported syncopal episode. Reports had episode of dizziness prior. He reported when he looks at light outside it bothers his eyes a little, but his vision is normal. When he was laying down after fainting, he reports hearing tinnitus. He said he fainted at the new job he started working, but contributes it to gastroenteritis. He kept throwing up, he had diarrhea, and dizziness. He went to the [facility] ED. He states no seizure-like episode or postictal symptoms. Holter 12/11/24 1. Baseline was normal sinus rhythm with no pauses 2. No significant arrhythmias noted 3. Frequent sinus tachycardia noted 4. Patient marked 2 events correlated with sinus rhythm Labs including CBC and electrolytes were unremarkable. Given episodes where from standing up quickly from lying down, likely vasovagal episode. Nausea 10/17/2024 Assessment & Plan (10/17/2024 4:19 PM EST): -Will prescribe zofran Blood in stool 10/17/2024 Seasonal allergies 09/02/2024 Hammer toe of right foot 07/12/2024 Overview (10/19/2024): Pain to right foot when wearing shoes. Evidence of hammer toe on exam. -seen by Dr. Isra Rapp, toe lining closer at [facility] 10/18/24, surgery scheduled Assessment & Plan (07/12/2024 3:27 PM EDT): Pain to right foot when wearing shoes. Evidence of hammer toe on exam. -referred to podiatry 07/12/24 Other specified health status 07/12/2024 Overview (09/02/2024): -next comprehensive annual evaluation due after 09/02/25 -eye care facilitated by [facility] -dental home is [facility] proxy filed 09/02/24 Encounters Date Type Department Care Team Description 12/19/2024 9:00 AM EDT Office Visit [address] [address] Marcella Antony MD Nonintractable headache, unspecified chronicity pattern, unspecified headache type (Primary Dx); Dizziness; BRBPR (bright red blood per rectum); Routine screening for STI (sexually transmitted infection); Family planning 12/19/2024 Travel 11/25/2024 Population Health Risk Score Community [facility] ([facility] Department [address] [place] [phone] Provider, Population Health Generic 10/17/2024 3:45 PM EST Office Visit [address] [address] Rose Braxton MD Nonintractable headache, unspecified chronicity pattern, unspecified headache type (Primary Dx); Dizziness; Nausea; Blood in stool; Syncope, unspecified syncope type 10/17/2024 Travel 10/17/[address] [address] Marcella Antony MD Nurse Triage 09/28/[address] [address] Marcella Antony MD Seasonal allergies from Last 3 Months Immunizations Name Administration [...] Industry Job Start Date Job End Date [employer] Not on file Not on file Not [...] Mass Index 22.12 12/19/2024 9:02 AM EDT Plan of Treatment Health Maintenance Due Date Last Done Comments Influenza Vaccine (#1) 2025 5, 08/25/2013, 05/31/2012, Additional history exists Postponed from 05/15/2024 (Patient Refused) Chlamydia and Gonorrhea Screening 07/12/2025 07/12/2024 Alcohol/Substance Use Screening 09/02/2025 09/02/2024 COVID-19 Vaccine ( season) 2025 Postponed from 05/15/2024 (Patient Refused) SDOH Screening 09/02/2025 09/02/2024 Depression Screening 12/19/2025 12/19/2024, 12/20/19 Family Planning (PISQ) 12/19/2025 12/19/2024 Tobacco Screening 12/19/2025 12/19/2024 DTaP/Tdap/Td Vaccines (8 - Td or Tdap) [...] (10/25/2024 7:14 AM EST) Client Education Tracking [employer] [facility] Comment: The Requisition we received did not include a [employer] account number. To prevent delays in testing [...] BLOOD BANK TEST ORDERABLES F inal Result [facility] [address], [place] [address] [employer] [place] [facility] [address] [place] [address] * Fecal Globin by Immunochemistry (10/25/2024 7:14 AM EST) Pathologist [facility] Fecal Globin By Immunochemistry SEE NOTE [facility] Comment: ??FECAL GLOBIN BY IMMUNOCHEMISTRY ?Micro Number: ?[id number] ??Test Status: ? Final ??Specimen Source: ?? [...] FASTING: UNKNOWN us Rose Braxton MD LAB BODY FLUIDS AND STOOLS ORDER ATILIO Final Result [facility] [address], [place] [address] [employer] [place] [facility] [address] [place] [address] * (ABNORMAL) CBC auto differential (10/17/2024 4:26 PM EST) White Blood Count 8.5 4.8 - 10.8 X10*3/uL [facility] Red Blood Count 4.74 4.60 - 5.80 X10*6/uL [facility] Hemoglobin 14.4 14.0 - 18.0 g/dl [facility] Hematocrit 40.5(L) 42.0 - 52.0 % [facility] Mean Corpuscular Volume 85.4 80.0 - 98.0 fL [facility] Mean Corpuscular Hemoglobin 30.4 27.0 - 33.0 pg [facility] Mean Corpuscular HGB Conc 35.6 31.0 - 36.0 g/dl [facility] Red Cell Distribution Width 12.2 11.0 - 16.0 % [facility] Platelet Count 205 160 - 400 X10*3/uL [facility] Mean Platelet Volume 8.6(L) 9.4 - 12.4 fL [facility] Neutrophils Percent Auto 74.8(H) 45 - 73 % [facility] Imm Gran Pct Auto 0.6(H) 0.0 - 0.4 % [facility] Lymphocytes Percent Auto 14.2(L) 20 - 40 % [facility] Monocytes Percent Auto 9.9 2 - 11 % [facility] Eosinophils Percent Auto 0.1 0 - 4 % [facility] Basophils Percent Auto 0.4 0 - 2 % [facility] NRBC Pct Auto 0.0 0.0 - 0.2 /100WBC [facility] Neutrophils Absolute Auto 6.4 2.0 - 8.3 x10*3/uL [facility] Imm Gran Abs Auto 0.05(H) 0.00 - 0.03 X10*3/uL [facility] Lymphocytes Absolute Auto 1.2 1.2 - 4.9 X10*3/uL [facility] Monocytes Absolute Auto 0.8 0.1 - 1.2 X10*3/uL [facility] Eosinophils Absolute Auto 0.0 0.0 - 0.4 X10*3/uL [facility] Basophils Absolute Auto 0.0 0.0 - 0.2 X10*3/uL [facility] NRBC Abs Auto 0.000 0.0 - 0.012 X10*3/uL [facility] Blood Venous blood specimen / Unknown 10/17/2024 4:26 PM EST 10/17/2024 5:39 PM EST us Rose Braxton MD LAB BLOOD ORDERABLES Final Resul t [facility] [address] [place] [address] [phone] * (ABNORMAL) Comprehensive Metabolic Panel (10/17/2024 4:26 PM EST) Sodium 136 135 - 145 mmol/L [facility] Potassium 3.3 3.3 - 5.1 mmol/L [facility] Chloride 100 96 - 108 mmol/L [facility] Carbon Dioxide 28 22 - 29 mmol/L [facility] Anion Gap 11(L) 12 - 20 [facility] Urea Nitrogen (BUN) 12 9 - 16 mg/dL [facility] Creatinine, Serum 0.74 0.5 - 1.4 mg/dL [facility] Estimated Glomerular Filt Rate >60 [facility] Comment:Chronic Kidney Disea se: Estimated GFR < 60 mL/min/1.32y0Wkwwdo Kidney Disease: Estimated GFR < 15 mL/min/1.73m2 Glucose 102 60 - 115 mg/dL [facility] Calcium 8.9 8.4 - 10.2 mg/dL [facility] Bilirubin, Total 0.8 0.0 - 1.0 mg/dL [facility] Aspartate Amino Transferase 21 5 - 37 U/L [facility] Alanine Aminotransferase 20 0 - 40 U/L [facility] Total Protein 7.9 6.5 - 8.0 g/dL [facility] Albumin Level 4.6 3.5 - 5.0 g/dL [facility] Alkaline Phosphatase 46 39 - 117 U/L [facility] Blood Venous blood specimen / Unknown 10/17/2024 4:26 PM EST 10/17/2024 5:39 PM EST us Rose Braxton MD LAB BLOOD ORDERABLES Final Resul t [facility] [address] [place] [phone] * Hepatitis C Antibody with Reflex to HCV, RNA, Quantitative, Real-Time PCR (07/12/2024 4:05 PM EDT) Hepatitis C Antibody Nonreactive Nonreactive [facility] Comment:Antibodies to HCV no t detected; does not exclude early acuteHCV infection. Blood Venous blood specimen / Unknown 07/12/2024 4:05 PM EDT 07/12/2024 5:55 PM EDT Marcella Antony MD LAB BLOOD ORDERABLES Final Result [facility] [address] [place] [address] [phone] * Chlamydia/N. Gonorrhoeae RNA, TMA, Urine (07/12/2024 4:05 PM EDT) CT PCR NOT DETECTED Not Detect. [facility] Comment:A not detected test result [...] psychologicalconsequences. NG PCR NOT DETECTED Not Detect. [facility] Comment:A not detected test result [...] PM EDT 07/12/2024 5:51 PM EDT Narrative [facility] - 07/13/2024 2:43 AM EDT Urine Marcella Antony MD LAB MICROBIOLOGY - GENERAL ORDERABLES Final Result Performing Organization Address [facility]/ZIP Co de Phone Number [facility] [address] [place] [address] [phone] * HIV-1/2 Antigen and Antibodies, Fourth Generation, with Reflexes (07/12/2024 4:05 PM EDT) [facility] HIV AB/AG Nonreactive Nonreactive [facility] Comment:HIV-1 p24 Ag and/or HIV-1/HIV-2 Ab not detected.A test result that is nonreactive does not exclude thepossibility of exposure to or infection with HIV-1 and/orHIV-2. Nonreactive results in this assay for individualswith prior exposure to HIV-1 and/or HIV-2 may be due toantigen and antibody levels that are below the limit ofdetection of this assay.The Tonx HIV Ag/Ab Combo assay result andsupplemental assay results should be interpreted inconjunction with the patient's clinical presentation,history and other laboratory results. If the results areinconsistent with clinical evidence, additional testing issuggested to confirm the result. Blood Venous blood specimen / Unknown 07/12/2024 4:05 PM EDT 07/12/2024 5:55 PM EDT Marcella Antony MD LAB BLOOD ORDERABLES Final Result Performing Organization Address [facility]/ZIP Co de Phone Number [facility] [address] [place] [address] [phone] from Last 3 Months or Most Recently Relevant to Health Maintenance Insurance [facility] C3 Advance Directives Documents on File Type Date Recorded Patient Digital Engineer Expl anation Advance Directives and Living Will 09/02/2024 Health Care Proxy 09/02/24 Care Teams Clinic Scheduler Relationship Specialty Start Date End Date Norman, MD Marcella [address] [place] [phone] PCP - General Family Medicine 07/12/24 Isra Rapp DPM [address] [place] [phone] Podiatry 10/19/24
--- OUTSIDE RECORDS SUMMARY | 2024-12-19 10:35 | XMS_ITS | Encounter Summary ---
Author Organization [employer] Address [address] [facility] 7t [place] [address] Care Team Providers Care Detail Drafter Name Role Phone Marcella Antony MD Primary Care Provider [phone] Isra Rapp DPM Unavailable [phone] Reason for Visit * Reason Onset Date Comments Nurse Triage 10/17/2024 Encounter Details Date Type Department Care Team ([facility] st Contact Info) Description 10/17/2024 Telephone [facility] [address] [place], [place] [phone] Marcella Antony MD [address] [place], [place] [phone] Nurse Triage Social History Tobacco Use Types [...] 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 [facility] by provider. Pt reports gets out of work at 630pm and will come to [facility]. Home care is reviewed. Pt agrees with [...] caller accepted this outcome. Contact pt at [phone] documented in this encounter Plan of Treatment Not on file documented as of this encounter Visit Diagnoses Not on filedocumented in this encounter Care Teams Detail Drafter Relationship Specialty Start Date End Date Marcella Antony MD [address] [place] [address] PCP - General Family Medicine 07/12/24 Isra Rapp DPM [address] [place] [phone] Podiatry 10/19/24 documented as of this encounter
--- OUTSIDE RECORDS SUMMARY | 2024-12-19 10:35 | XMS_ITS | Encounter Summary ---
Author Organization [employer] Address [address] [facility] 7 [place] [address] Care Team Providers Care Center Lead Consultant Name Role Phone Marcella Antony MD Primary Care Provider [phone]- [phone] Isra Rapp DPSusana Unavailable [phone] Reason for Visit * Reason Onset Date Comments Med Refill 09/28/2024 Encounter Details Date Type Department Care Team (Late st Contact Info) Description 09/28/2024 Refill [facility] [address] [place], [place] [phone] Marcella Antony MD [address] [place], [place] [phone] Seasonal allergies Social History Tobacco Use Types [...] t he electric, gas, oil or water [employer] threatened to shut off services in your [...] Industry Job Start Date Job End Date [employer] Not on file Not on file Not on file documented as of this encounter Plan of Treatment Not on file documented as of this encounter Visit Diagnoses Diagnosis Seasonal allergies Allergic rhinitis, cause unspecified documented in this encounter Care Teams Center Lead Consultant Relationship Specialty Start Date End Date Marcella Antony MD [address] [place] [address] PCP - General Family Medicine 07/12/24 Isra Rapp DPM [address] [place] [phone] Podiatry 10/19/24 documented as of this encounter
[2024-12-19 13:19] LABS: CT PCR NOT DETECTED (Not Detect.); NG PCR NOT DETECTED (Not Detect.)
[2024-12-20 04:22] LABS: Syphilis Screen Nonreactive (Nonreactive)
[2024-12-20 04:55] LABS: HIV AB/AG Nonreactive (Nonreactive); HIV Num 1 0.08 S/CO (0.00-0.99); ~Hepatitis C Antibody Nonreactive (Nonreactive)
== END 2024-12-19 09:26 | disposition home or self-care (01) ==
LOC: HO.HHCL 09:25
PROVIDERS: Visit Provider Family Medicine
DX: Z11.3 Encounter for screening for infections with a predominantly sexual mode of transmission (principal)
CPT/HCPCS: 86780; 86803; 87389; 87491; 87591